=== PATIENT | female | born 1965 ===

== ENCOUNTER 2017-09-14 10:45 | Day surgery (SDC) | payer OTHER | END 2017-09-14 15:30 | disposition home or self-care (01) | LOC: AMB-ENDOS 10:45 | DX: K57.30 Diverticulosis of large intestine without perforation or abscess without bleeding (principal); Z12.11 Encounter for screening for malignant neoplasm of colon ==

== ENCOUNTER 2017-09-22 15:25 | Outpatient (CLI) | payer OTHER ==
[~2017-09-22] VITALS: Ht 157.5 cm; Wt 50.8 kg
== END 2017-09-22 17:22 | disposition home or self-care (01) ==
LOC: OFIC 805 15:25
DX: L03.211 Cellulitis of face (principal); J32.8 Other chronic sinusitis

== ENCOUNTER 2017-09-22 16:28 | Emergency (ER) | payer OTHER ==
[~2017-09-22] VITALS: Ht 157.5 cm; Wt 61.2 kg
== END 2017-09-22 20:51 | disposition home or self-care (01) ==
LOC: ER 16:28
DX: L02.02 Furuncle of face (principal); L03.211 Cellulitis of face